=== PATIENT | female | born 1960 | race Caucasian/White ===

== ENCOUNTER 2016-05-09 15:57 | Inpatient (IN) | payer SELFPAY ==
[~2016-05-09] VITALS: Ht 162.6 cm; Wt 54.1 kg
[2016-05-09] VITALS (7 sets, daily range): BP systolic 98–122; BP diastolic 54–78; PULSE 80–103; RESP 20–28; TEMP 99.4; O2SAT 90–97
[~2016-05-09 15:57] MED LIST: BENZ0.5T PO; CITA40 PO; HYDR-3534 PO; RISP4TAB41 PO; TEGR400T PO
[2016-05-09] MEDS ORDERED: methylPREDNISolone SOD SUCC 125 MG/2 ML VIAL IVP ONE (16:15)
[2016-05-09] MEDS ORDERED: ONDANSETRON HCL 4 MG/2 ML VIAL IV PUSH ONE (16:15)
[2016-05-09] MEDS ORDERED: SODIUM CHLORIDE 0.9% FLUSH 5 ML FLUSH IVF PRN (16:15)
[2016-05-09] MEDS ORDERED: MORPHINE SULFATE 8 MG/ML INJ IV PUSH ONE ×2 (16:15→21:00)
--- NOTE | 2016-05-09 16:17 | PD ---
HPI Chief Complaint: Chest Pain Time Seen by Provider: 16:05 Travel History International Travel<30 days: No Contact w/Intl Traveler<30days: No Traveled to known affect area: No History of Present Illness HPI .56-year-old female complaining of chest pain and shortness of breath. She says she is having pain in her chest for 2 days. The pain is aggravated by deep breathing. She is SHORT of breath. She smokes 2 packs of cigarettes a day and believes she has COPD. she says the pain has been fairly constant since it started. There is been no vomiting or diarrhea. The pain is across both sides of the chest and is moderate. She is not aware of fever or chills PFSH Past Medical History Bipolar Disorder: Yes High Cholesterol: Yes Cirrhosis: Yes Diminished Hearing: No Hepatitis: Yes (C) Musculoskeletal: Yes (Chronic back pain/DDD/herniated/bulging discs) Seizures: Yes ?: Not LMP: [place]- Menopausal: Yes Social History Alcohol Use: Yes (States "sometimes") Tobacco Use: Yes (1 PPD) Substance Use: No Allergies-Medications (Allergen,Severity, Reaction): Coded Allergies: Codeine (Verified Allergy, Severe, Rash, vomiting, 05/09/16) Reported Meds & Prescriptions Reported Meds & Active Scripts Active Lortab 7.5 mg/325 mg (Hydrocodone/Acetaminophen 7.5 mg/325 mg) 1 Tab 1 Tab PO Q4H PRN Reported Cogentin (Benztropine Mesylate) 0.5 Mg Tab 0.5 Mg PO DAILY Celexa 40 Mg Tab (Citalopram Hydrobromide) 40 Mg Tab 30 Mg PO DAILY Tegretol-Xr (Carbamazepine) 400 Mg Tab 1,200 Mg PO DAILY Risperdal (Risperidone) 4 Mg Tab 5 Mg PO HS Review of Systems General / Constitutional: No: Fever, Chills Eyes: No: Diploplia, Blurred Vision HENT: No: Headaches Cardiovascular: Positive: Chest Pain or Discomfort Respiratory: Positive: Cough, Shortness of Breath, Wheezing Gastrointestinal: No: Vomiting, Diarrhea Musculoskeletal: No: Myalgias, Arthralgias Skin: No Rash Neurologic: No: Weakness, Dizziness Physical Exam Narrative GENERAL: Well-developed female in moderate respiratory distress SKIN: Warm and dry. HEAD: Atraumatic. Normocephalic. EYES: Pupils equal and round. No scleral icterus. No injection or drainage. ENT: No nasal bleeding or discharge. Mucous membranes pink and moist. NECK: Trachea midline. No JVD. CARDIOVASCULAR: Regular rate and rhythm. No murmur appreciated. RESPIRATORY: She is using accessory muscles. There are bilateral rhonchi GASTROINTESTINAL: Abdomen soft, non-tender, nondistended. Hepatic and splenic margins not palpable. MUSCULOSKELETAL: No obvious deformities. No clubbing. No cyanosis. No edema. NEUROLOGICAL: Awake and alert. No obvious cranial nerve deficits. Motor grossly within normal limits. Normal speech. PSYCHIATRIC: Anxious mood and affect; insight and judgment normal. Data Data Last Documented VS Vital Signs Date Time Temp Pulse Resp B/P Pulse Ox O2 Delivery O2 Flow Rate FiO2 05/09/16 19:11 80 20 113/68 95 Room Air 2 05/09/16 15:59 99.4 Orders Complete Blood Count With Diff (05/09/16 16:11) Comprehensive Metabolic Panel (05/09/16 16:11) B-Type Natriuretic Peptide (05/09/16 16:11) Troponin I (05/09/16 16:11) Influenzae A/B Antigen (05/09/16 16:11) Iv Access Insert/Monitor (05/09/16 16:11) Ecg Monitoring (05/09/16 16:11) Oximetry (05/09/16 16:11) Oxygen Administration (05/09/16 16:11) Sodium Chloride 0.9% Flush (Ns Flush) (05/09/16 16:15) Methylprednisolone So Succ Inj (Solumedr (05/09/16 16:15) Albuterol-Ipratropium Neb (Duoneb Neb) (05/09/16 16:15) Ondansetron Inj (Zofran Inj) (05/09/16 16:15) Morphine Inj (Morphine Inj) (05/09/16 16:15) Chest, Single Ap (05/09/16 17:51) Blood Culture (05/09/16 19:19) Ceftriaxone Inj (Rocephin Inj) (05/09/16 19:30) Azithromycin Inj (Zithromax Inj) (05/09/16 19:30) Labs Laboratory Tests Test 05/09/16 16:30 White Blood Count 14.6 TH/MM3 Red Blood Count 4.39 MIL/MM3 Hemoglobin 14.2 GM/DL Hematocrit 41.8 % Mean Corpuscular Volume 95.4 FL Mean Corpuscular Hemoglobin 32.4 PG Mean Corpuscular Hemoglobin 34.0 % Concent Red Cell Distribution Width 12.3 % Platelet Count 237 TH/MM3 Mean Platelet Volume 8.3 FL Neutrophils (%) (Auto) 84.2 % Lymphocytes (%) (Auto) 9.1 % Monocytes (%) (Auto) 3.4 % Eosinophils (%) (Auto) 0.8 % Basophils (%) (Auto) 2.5 % Neutrophils # (Auto) 12.3 TH/MM3 Lymphocytes # (Auto) 1.3 TH/MM3 Monocytes # (Auto) 0.5 TH/MM3 Eosinophils # (Auto) 0.1 TH/MM3 Basophils # (Auto) 0.4 TH/MM3 CBC Comment DIFF FINAL Differential Comment Sodium Level 136 MEQ/L Potassium Level 4.0 MEQ/L Chloride Level 101 MEQ/L Carbon Dioxide Level 24.7 MEQ/L Anion Gap 10 MEQ/L Blood Urea Nitrogen 14 MG/DL Creatinine 0.66 MG/DL Estimat Glomerular Filtration 93 ML/MIN Rate Random Glucose 94 MG/DL Calcium Level 9.0 MG/DL Total Bilirubin 0.7 MG/DL Aspartate Amino Transf 39 U/L (AST/SGOT) Alanine Aminotransferase 18 U/L (ALT/SGPT) Alkaline Phosphatase 64 U/L Troponin I LESS THAN 0.02 NG/ML B-Type Natriuretic Peptide 15 PG/ML Total Protein 7.6 GM/DL Albumin 3.1 GM/DL MDM Medical Decision Making Medical Screen Exam Complete: Yes Emergency Medical Condition: Yes Medical Record Reviewed: Yes Differential Diagnosis Differential includes coronary artery disease, COPD, pneumonia Narrative Course X-ray shows bibasilar infiltrates. Patient has been given repeated nebulizer treatments and Solu-Medrol with some improvement in the rhonchi and respiratory distress. Blood cultures have been obtained and antibiotics will be initiated. She is having pneumonia with COPD exacerbation Diagnosis Primary Impression: Pneumonia Qualified Code: J18.9 - Pneumonia of both lower lobes due to infectious organism Additional Impression: COPD exacerbation Mauricio Rothman MD May 09, 2016 16:17
[2016-05-09] MEDS: RESP: ALBUTEROL 2.5 MG/IPRATROPIUM 0.5 MG NEB (SCH) INH (16:25)
[2016-05-09 16:42] LABS: AUTOMATED NEUTROPHIL # 12.3 TH/MM3 (1.8-7.7); BASOPHIL # 0.4 TH/MM3 (0-0.2); BASOPHIL % 2.5 % (0.0-2.0); EOSINOPHIL # 0.1 TH/MM3 (0-0.4); EOSINOPHIL % 0.8 % (0.0-4.0); HEMATOCRIT 41.8 % (35.0-46.0); LYMPH % 9.1 % (9.0-44.0); LYMPHOCYTE # 1.3 TH/MM3 (1.0-4.8); MEAN CELL VOLUME 95.4 FL (80.0-100.0); MEAN CORPUSCULAR HEMOGLOBIN 32.4 PG (27.0-34.0); MONO % 3.4 % (0.0-8.0); NEUT % 84.2 % (16.0-70.0); PLATELET COUNT 237 TH/MM3 (150-450); RED BLOOD COUNT 4.39 MIL/MM3 (4.00-5.30); RED CELL DISTRIBUTION WIDTH 12.3 % (11.6-17.2); WHITE BLOOD COUNT 14.6 TH/MM3 (4.0-11.0)
[2016-05-09 16:49] LABS: HEMO FLAGS DIFF FINAL
[2016-05-09 16:51] LABS: CHLORIDE 101 MEQ/L (98-107); SODIUM (NA) 136 MEQ/L (136-145)
[2016-05-09 16:54] LABS: ANION GAP 10 MEQ/L (5-15); BICARBONATE 24.7 MEQ/L (21.0-32.0)
[2016-05-09 16:55] LABS: BLOOD UREA NITROGEN 14 MG/DL (7-18)
[2016-05-09 16:57] LABS: ALT (GPT) 18 U/L (10-53); AST (GOT) 39 U/L (15-37)
[2016-05-09 16:58] LABS: GLOMERULAR FILTRATION RATE 93 ML/MIN (>89)
[2016-05-09 16:59] LABS: TOTAL BILIRUBIN ADULT 0.7 MG/DL (0.2-1.0)
[2016-05-09 17:00] LABS: ALKALINE PHOSPHATASE 64 U/L (45-117)
--- NOTE | 2016-05-09 18:56 | RADHPO ---
EXAM DATE/TIME: 05/09/2016 18:07 [facility] COMPARISON: CHEST SINGLE AP, October 09, 2015, 11:24. INDICATIONS : Chest pain and short of breath. MEDICAL HISTORY : Chronic obstructive pulmonary disease. SURGICAL HISTORY : None. ENCOUNTER: Initial ACUITY: 1 day PAIN SCORE: 5/10 LOCATION: Bilateral chest FINDINGS: There is patchy basilar airspace disease, right greater than left most characteristic of bronchopneum onia or aspiration. No effusion. No pneumothorax. Heart size normal. Mild scoliosis. CONCLUSION: 1. Bilateral mostly basilar airspace disease most characteristic of bronchopneumonia. Lawrence Pham MD on May 09, 2016 at 18:54 Board Certified Radiologist. This report was verified electronically.
[2016-05-09] MEDS ORDERED: cefTRIAXone INJ 1,000 MG in SODIUM CHLORIDE 0.9% INJ 100 ML IV ONE (19:30)
[2016-05-09] MEDS ORDERED: AZITHROMYCIN INJ 500 MG in SODIUM CHLOR 0.9% 250 ML INJ 250 ML IV ONE (19:30)
[2016-05-09] MEDS ORDERED: SODIUM CHLORIDE 0.9% FLUSH 5 ML FLUSH FLUSH PRN (20:30)
[2016-05-09] MEDS ORDERED: NALOXONE HCL 0.4 MG/ML AMP IV PRN (20:30)
[2016-05-09] MEDS ORDERED: RESP: ALBUTEROL 2.5 MG/IPRATROPIUM 0.5 MG NEB (PRN) NEB (20:30)
[2016-05-09] MEDS: SODIUM CHLORIDE 0.9% FLUSH 5 ML FLUSH FLUSH SCH (21:00)
[2016-05-09] MEDS: RESP: ALBUTEROL 2.5 MG/IPRATROPIUM 0.5 MG NEB (SCH) NEB (21:43)
[2016-05-10] VITALS (10 sets, daily range): BP systolic 101–114; BP diastolic 65–73; PULSE 72–81; RESP 16–20; TEMP 97.8–98.9; O2SAT 92–98
[2016-05-10] MEDS: methylPREDNISolone SOD SUCC 40 MG/1 ML VIAL IV PUSH SCH ×3 (01:02→13:10)
[2016-05-10] MEDS: RESP: ALBUTEROL 2.5 MG/IPRATROPIUM 0.5 MG NEB (SCH) NEB ×4 (03:51→20:54)
[2016-05-10 06:58] LABS: AUTOMATED NEUTROPHIL # 6.1 TH/MM3 (1.8-7.7); BASOPHIL % 0.1 % (0.0-2.0); EOSINOPHIL # 0.1 TH/MM3 (0-0.4); HEMATOCRIT 37.5 % (35.0-46.0); HEMO FLAGS DIFF FINAL; LYMPH % 4.3 % (9.0-44.0); LYMPHOCYTE # 0.3 TH/MM3 (1.0-4.8); MEAN CELL VOLUME 96.8 FL (80.0-100.0); MEAN CORPUSCULAR HEMOGLOBIN 32.4 PG (27.0-34.0); MEAN CORPUSCULAR HGB CONC 33.5 % (32.0-36.0); MONO % 1.5 % (0.0-8.0); NEUT % 93.1 % (16.0-70.0); PLATELET COUNT 214 TH/MM3 (150-450); RED BLOOD COUNT 3.88 MIL/MM3 (4.00-5.30); RED CELL DISTRIBUTION WIDTH 12.4 % (11.6-17.2); WHITE BLOOD COUNT 6.6 TH/MM3 (4.0-11.0)
[2016-05-10 07:14] LABS: POTASSIUM 3.7 MEQ/L (3.5-5.1)
[2016-05-10 07:22] LABS: BICARBONATE 25.1 MEQ/L (21.0-32.0)
[2016-05-10] MEDS ORDERED: AZITHROMYCIN 250 MG TAB PO SCH (09:00)
[2016-05-10] MEDS: PANTOPRAZOLE SOD 40 MG DELAYED RELEASE TAB PO SCH (09:51)
[2016-05-10] MEDS: ENOXAPARIN SODIUM 40 MG/0.4 ML SYRINGE SQ SCH (09:53)
[2016-05-10] MEDS ORDERED: ACETAMINOPHEN/HYDROcodone 325 MG/10 MG TAB PO ONE (11:30)
[2016-05-10] MEDS: SODIUM CHLORIDE 0.9% FLUSH 5 ML FLUSH FLUSH SCH ×2 (13:09→21:00)
--- NOTE | 2016-05-10 14:11 | HHI.HP ---
[facility] Service [facility] Primary Care Physician No Primary Care Physician Admission Diagnosis PNEUMONIA, COPD EXACERBATION Diagnoses: (1) Sepsis Diagnosis: Principal (2) Pneumonia Diagnosis: Principal (3) COPD exacerbation Diagnosis: Principal Chief Complaint: SOB Travel History International Travel<30 Days: No Contact w/Intl Traveler <30 Da: No Traveled to Known Affected Are: No History of Present Illness 56-year-old female with history of Hepatitis C and cirrhosis and possible COPD, presents with complaint of shortness of breath and chest pain. Admitted for COPD exacerbation and pneumonia. The patient states she feels a little better than before. She states she could not breathe for a couple of days. She states she may have had chest pain due to hyperventilating. She describes the pain as sharp stating she had a for a couple of days rating it a 10/10 on arrival. She states she felt warm and has had chills off and on. Denies having inhalers at home. She smokes 2 packs per day. Review of Systems Other ROS 10 negative unless otherwise indicated in HPI. Past Family Social History Past Medical History Hepatitis C and cirrhosis Depression Bipolar disorder Schizophrenia Past Surgical History Plate and screws in left arm Reported Medications Active Lortab 7.5 mg/325 mg (Hydrocodone/Acetaminophen 7.5 mg/325 mg) 1 Tab 1 Tab PO Q4H PRN Reported Cogentin (Benztropine Mesylate) 0.5 Mg Tab 0.5 Mg PO DAILY Celexa 40 Mg Tab (Citalopram Hydrobromide) 40 Mg Tab 30 Mg PO DAILY Tegretol-Xr (Carbamazepine) 400 Mg Tab 1,200 Mg PO DAILY Risperdal (Risperidone) 4 Mg Tab 5 Mg PO HS Allergies: Coded Allergies: Codeine (Verified Allergy, Severe, Rash, vomiting, 05/09/16) Family History Sister and father with COPD. Social History Smokes 2 packs per day of cigarettes. Patient drinks a few beers a couple times per week. Physical Exam Vital Signs Vital Signs Date Time Temp Pulse Resp B/P Pulse Ox O2 Delivery O2 Flow Rate FiO2 05/10/16 12:00 98.8 77 16 110/73 93 2/7/17 10:56 92 Nasal Cannula 2.00 05/10/16 08:00 98.9 77 18 109/73 92 05/10/16 04:00 97.8 74 18 110/68 98 05/10/16 01:28 86 20 91 Nasal Cannula 2 05/10/16 00:00 98.1 78 18 114/71 92 05/09/16 22:19 90 20 98/54 96 Room Air 05/09/16 22:00 16 05/09/16 20:21 95 Nasal Cannula 2.00 05/09/16 19:11 80 20 113/68 95 Room Air 2 05/09/16 17:06 103 20 112/73 92 Room Air 05/09/16 16:25 97 Nasal Cannula 2.00 05/09/16 16:23 94 Nasal Cannula 2 05/09/16 16:23 90 Room Air 05/09/16 16:18 87 22 94 Nasal Cannula 2 05/09/16 15:59 99.4 100 28 122/78 92 Physical Exam GENERAL: This is a well-nourished, well-developed patient, in no apparent distress. SKIN: No rashes, ecchymoses or lesions. Cool and dry. HEAD: Atraumatic. Normocephalic. EYES: No scleral icterus. No injection or drainage. NECK: Trachea midline. CHEST: Reproducible chest wall tenderness. CARDIOVASCULAR: Regular rate and rhythm without murmurs. RESPIRATORY: Clear to auscultation. Breath sounds equal bilaterally. No wheezes , rales, or rhonchi. GASTROINTESTINAL: Abdomen nondistended. MUSCULOSKELETAL: No lower extremity edema. NEUROLOGICAL: Awake and alert. Motor grossly within normal limits. Normal speech. PSYCHIATRIC: Normal mood and affect. Insight and judgement normal. Laboratory Laboratory Tests Test 05/09/16 05/10/16 16:30 05:55 White Blood Count 14.6 6.6 Red Blood Count 4.39 3.88 Hemoglobin 14.2 12.6 Hematocrit 41.8 37.5 Mean Corpuscular Volume 95.4 96.8 Mean Corpuscular Hemoglobin 32.4 32.4 Mean Corpuscular Hemoglobin 34.0 33.5 Concent Red Cell Distribution Width 12.3 12.4 Platelet Count 237 214 Mean Platelet Volume 8.3 9.0 Neutrophils (%) (Auto) 84.2 93.1 Lymphocytes (%) (Auto) 9.1 4.3 Monocytes (%) (Auto) 3.4 1.5 Eosinophils (%) (Auto) 0.8 1.0 Basophils (%) (Auto) 2.5 0.1 Neutrophils # (Auto) 12.3 6.1 Lymphocytes # (Auto) 1.3 0.3 Monocytes # (Auto) 0.5 0.1 Eosinophils # (Auto) 0.1 0.1 Basophils # (Auto) 0.4 0.0 CBC Comment DIFF FINAL DIFF FINAL Differential Comment Sodium Level 136 137 Potassium Level 4.0 3.7 Chloride Level 101 102 Carbon Dioxide Level 24.7 25.1 Anion Gap 10 10 Blood Urea Nitrogen 14 13 Creatinine 0.66 0.62 Estimat Glomerular Filtration 93 100 Rate Random Glucose 94 184 Calcium Level 9.0 8.7 Total Bilirubin 0.7 Aspartate Amino Transf 39 (AST/SGOT) Alanine Aminotransferase 18 (ALT/SGPT) Alkaline Phosphatase 64 Troponin I LESS THAN 0.02 B-Type Natriuretic Peptide 15 Total Protein 7.6 Albumin 3.1 Date/Time Procedure Status Source Growth 05/09/16 19:25 Aerobic Blood Culture - Preliminary Resulted Blood Peripheral NO GROWTH IN 1 DAY 05/09/16 19:25 Anaerobic Blood Culture - Preliminary Resulted Blood Peripheral NO GROWTH IN 1 DAY 05/09/16 16:50 Influenza Types A,B Antigen (ZULLY) - Final Complete Nasal Washing NEGATIVE FOR FLU A AND B ANTIGEN.... Result Diagram: 05/10/16 0555 05/10/16 0555 Imaging Last Impressions Chest X-Ray 05/09/16 8321 Signed Impressions: Service Date/Time: Monday, May 09, 2016 18:07 - CONCLUSION: 1. Bilateral mostly basilar airspace disease most characteristic of bronchopneumonia. Lawrence Pham MD Assessment and Plan Assessment and Plan 56-year-old female with: Sepsis: Heart rate 100 with respiratory rate of 28 on arrival. WBC 14.6-->6.6. Source of infection pneumonia. Lactic acid was not performed in ED. -Antibiotics as below -Blood cultures 2 no growth in 1 day -Telemetry, vitals Pneumonia/COPD exacerbation: Chest x-ray personally reviewed with basilar air space disease indicating bronchopneumonia. Influenza negative. Improved with lungs CTAB this afternoon. -Patient currently receiving ceftriaxone and po azithromycin -Solu-Medrol 40 mg every 6 hours IV -Duonebs q6 scheduled and q2 prn -O2 prn -home O2 walk test completed; 91% on exertion without O2. No home O2 needed. Patient complained of some chest pain but appears to be pulmonary related and she also has reproducible tenderness on exam. Troponin less than 0.02. BNP 15. EKG personally interpreted with normal sinus rhythm, no evidence of ischemia. DVT prevention: SCDs, Lovenox. Case management consulted. Blue card to be obtained as well as prescriptions obtained from main hospital. Discharge disposition: Home in stable condition. Diet: Regular Activity: Avoid strenuous activity. Medications: Levaquin, prednisone taper, albuterol inhaler. Continue home medications. Follow-up: PCP within 1 week. Written by Oneida Simon PA-C acting as scribe for Dr. Rowell on 05/10/16 at 1400 hours. The documentation accurately reflects the work and decisions performed face-to- face by me Dr. Rowell on 05/10/16 at 1400 hours. I was later informed by case management that the medications cannot be obtained today but will be able to be obtained tomorrow morning from pharmacy. Patient cannot be discharged as it would be unsafe for her to leave without medications at home. Inpatient antibiotics and steroids switched to by mouth. Physician Certification 2 Midnight Certification Type: Admission for Inpatient Services Order for Inpatient Services The services are ordered in accordance with Medicare regulations or non- Medicare payer requirements, as applicable. In the case of services not specified as inpatient-only, they are appropriately provided as inpatient services in accordance with the 2-midnight benchmark. Estimated LOS (days): 2 days is the estimated time the patient will need to remain in the hospital, assuming treatment plan goals are met and no additional complications. Post-Hospital Plan: Home Problem Qualifiers (1) Pneumonia: Qualified Code: J18.9 - Pneumonia of both lower lobes due to infectious organism Oneida Simon May 10, 2016 14:11
[2016-05-10] MEDS ORDERED: AMOX500C PO (15:33)
[2016-05-10] MEDS ORDERED: ALBU6.7H INH ×2 (16:14→16:26)
[2016-05-10] MEDS ORDERED: PRED10 PO ×2 (16:14→16:26)
--- NOTE | 2016-05-10 16:14 | HHI.DCPOC ---
Discharge Care Plan Diagnosis: (1) Sepsis (2) Pneumonia (3) COPD exacerbation Your Health Problems Are: Shortness of Breath Goals to Promote Your Health * To prevent worsening of your condition and complications * To maintain your health at the optimal level Directions to Meet Your Goals Take your medications as prescribed Follow your dietary instruction Follow activity as directed Keep your appointments as scheduled Take your immunizations and boosters as scheduled If your symptoms worsen call your PCP, if no PCP go to Urgent Care Center or Emergency Room Smoking is Dangerous to Your Health. Avoid second hand smoke Call the 24-hour hour crisis hotline for domestic abuse at Oneida Simon May 10, 2016 16:14
[2016-05-10] MEDS ORDERED: LEVA750T PO (16:26)
--- NOTE | 2016-05-10 17:43 | EKG ---
Date Performed: 05/09/2016 Time Performed: 16:01:12 PTAGE: 56 years EKG: Sinus rhythm rSr'(V1) - probable normal variant Since previous tracing, no significant change noted Normal ECG PREVIOUS TRACING : 10/09/2015 10.25 DOCTOR: Payam Chin Interpretating Date/Time 05/10/2016 17:41:09
[2016-05-10] MEDS ORDERED: cefTRIAXone INJ 1,000 MG in SODIUM CHLORIDE 0.9% INJ 100 ML IV SCH (20:00)
[2016-05-11] VITALS: BP 117/78; PULSE 82; RESP 20; TEMP 97.7; O2SAT 98
[2016-05-11] MEDS: RESP: ALBUTEROL 2.5 MG/IPRATROPIUM 0.5 MG NEB (SCH) NEB ×2 (03:27→09:15)
[2016-05-11 04:00] VITALS: BP 117/81; PULSE 87; RESP 24; TEMP 98.6; O2SAT 98
[2016-05-11 08:00] VITALS: BP 121/79; PULSE 79; RESP 18; TEMP 98; O2SAT 96
[2016-05-11] MEDS: SODIUM CHLORIDE 0.9% FLUSH 5 ML FLUSH FLUSH SCH (09:00)
[2016-05-11] MEDS ORDERED: predniSONE 20 MG TAB PO SCH (09:00)
[2016-05-11 09:16] VITALS: O2SAT 98
[2016-05-11] MEDS: PANTOPRAZOLE SOD 40 MG DELAYED RELEASE TAB PO SCH (09:28)
[2016-05-11] MEDS: ENOXAPARIN SODIUM 40 MG/0.4 ML SYRINGE SQ SCH (09:28)
--- NOTE | 2016-05-11 10:18 | HHI.PR ---
Subjective Remarks Patient seen in follow-up for sepsis secondary to pneumonia. Better today and sepsis is resolved. Awaiting any medications today. Discussed with case management and nursing staff. Patient feels well. No events on telemetry Objective Vitals Vital Signs Date Time Temp Pulse Resp B/P Pulse Ox O2 Delivery O2 Flow Rate FiO2 05/11/16 09:16 98 Nasal Cannula 2.00 05/11/16 08:00 98.0 79 18 121/79 96 05/11/16 04:00 98.6 87 24 117/81 98 05/11/16 00:00 97.7 82 20 117/78 98 05/10/16 21:00 72 05/10/16 20:55 95 Nasal Cannula 2.00 05/10/16 20:00 98.6 74 20 111/72 94 05/10/16 16:00 98.5 81 16 101/65 94 05/10/16 15:22 97 Nasal Cannula 2.00 05/10/16 12:00 98.8 77 16 110/73 93 05/10/16 10:56 92 Nasal Cannula 2.00 I/O 05/10/16 05/10/16 05/10/16 05/11/16 05/11/16 05/11/16 07:00 15:00 23:00 07:00 15:00 23:00 Intake Total 240 ml 1080 ml 120 ml Balance 240 ml 1080 ml 120 ml Intake Oral 240 ml 1080 ml 120 ml # Voids 1 6 2 # Bowel Movements 0 0 0 Result Diagram: 05/10/16 0555 05/10/16 0555 Objective Remarks GENERAL: This is a well-nourished, well-developed patient, in no apparent distress. CARDIOVASCULAR: Regular rate and rhythm without murmurs, gallops, or rubs. RESPIRATORY: Clear to auscultation. Breath sounds equal bilaterally. No wheezes , rales, or rhonchi. GASTROINTESTINAL: Abdomen soft, non-tender, nondistended. Normal active bowel sounds MUSCULOSKELETAL: Extremities without clubbing, cyanosis, or edema. NEURO: Alert & Oriented x4 to person, place, time, situation. Moves all ext x4 A/P Problem List: (1) Sepsis ICD Code: A41.9 Status: Acute Plan: Resolved. Secondary to pneumonia, continue oral antibiotics after discharge Discharge Planning Discharge home Activity unrestricted Diet as tolerated Anya Ramírez MD May 11, 2016 10:18
[2016-05-11] MEDS ORDERED: LEVOFLOXACIN 750 MG TAB PO SCH (11:00)
== END 2016-05-11 11:53 | disposition home or self-care (01) | DRG 871 ==
LOC: PHEFT 15:57 → PHEDA 19:53 → PHEDH 23:53 → PH3B 05-10 01:19
PROVIDERS: ADMIT Hospitalist; ATTEND Hospitalist
DX: A41.9 Sepsis, unspecified organism (principal); J18.0 Bronchopneumonia, unspecified organism; K74.60 Unspecified cirrhosis of liver; J44.0 Chronic obstructive pulmonary disease with (acute) lower respiratory infection; E78.00 Pure hypercholesterolemia, unspecified; F17.210 Nicotine dependence, cigarettes, uncomplicated; F20.9 Schizophrenia, unspecified; F31.9 Bipolar disorder, unspecified
CPT/HCPCS: 71010; 80048; 80053; 83880; 84484; 85025; 87040; 87804; 93005; 94620; 94640; 94664; 96374; 96375; J0456; J0696; J1650; J2270; J2405; J2920; J2930; J7050; J7512

== ENCOUNTER 2016-09-08 14:31 | Emergency (ER) | payer SELFPAY ==
[~2016-09-08] VITALS: Ht 162.6 cm; Wt 59.0 kg
[~2016-09-08 14:31] MED LIST changes: +ALBU6.7H INH; +LEVA750T PO; +PRED10 PO
[2016-09-08 14:34] VITALS: BP 135/75; PULSE 84; RESP 20; TEMP 97.9; O2SAT 96
--- NOTE | 2016-09-08 14:59 | PD ---
HPI Chief Complaint: Injury Time Seen by Provider: 14:45 Travel History International Travel<30 days: No Contact w/Intl Traveler<30days: No Traveled to known affect area: No History of Present Illness HPI 56-year-old female presents for evaluation of right lower leg pain. She reports that she tripped on her flip-flops in June of this year and she reportedly sustained fractures to her right lower leg. She reports that she was seen twice at an outside emergency room about this issue and was placed in a posterior short leg splint. She then unfortunately had to spend 60 days in snf. She was just released a few weeks ago. She reports that because of this she has been unable to see an orthopedist. Her rodent control worker has gotten her an appointment with an orthopedist but it is not until September 19 and so she presents here requesting pain medicine. She was previously been prescribed hydrocodone at an outside emergency room but she has run out. She denies any new injuries but she does admit that she has been walking around without crutches. She has also been manipulating her splint some, changing Lisandro bandages. She has no other complaints. PFSH Past Medical History Arthritis: No Bipolar Disorder: Yes Anxiety: Yes Depression: Yes Cancer: No Cardiovascular Problems: No High Cholesterol: Yes Cirrhosis: Yes COPD: Yes Cerebrovascular Accident: No Diminished Hearing: No Endocrine: No Genitourinary: No Hepatitis: Yes (C) Immune Disorder: No Musculoskeletal: Yes (Chronic back pain/DDD/herniated/bulging discs) Neurologic: Yes Psychiatric: Yes Reproductive: No Respiratory: Yes Migraines: No Seizures: Yes ("LONG AGO" (UNKNOWN ORIGIN)) Sleep Apnea: No Menopausal: Yes Past Surgical History Abdominal Surgery: No AICD: No Arteriovenous Shunt: No Body Medical Devices: LUMBAR LAMI, HARDWARE L. MIDDLE FINGER Cardiac Surgery: No Ear Surgery: No Endocrine Surgery: No Eye Surgery: No Genitourinary Surgery: No Gynecologic Surgery: No Insulin Pump: No Oral Surgery: No Pacemaker: No Thoracic Surgery: No Tonsillectomy: Yes Social History Alcohol Use: Yes (States "sometimes") Tobacco Use: Yes (1 PPD) Substance Use: No Allergies-Medications (Allergen,Severity, Reaction): Coded Allergies: Codeine (Verified Allergy, Severe, Rash, vomiting, 09/08/16) Reported Meds & Prescriptions Reported Meds & Active Scripts Active Diclofenac Sodium DR (Diclofenac Sodium) 75 Mg Tabdr 75 Mg PO BID 10 Days Levaquin (Levofloxacin) 750 Mg Tab 750 Mg PO DAILY Proventil Hfa 6.7 GM Inh (Albuterol Sulfate) 90 Mcg/Act Aer 2 Puff INH Q4-6H PRN Prednisone 10 Mg Tab 10 Mg PO DIRECTED 40 mg daily for 3 days, 30 mg daily for 3 days, 20 mg daily for 3 days, 10 mg for 3 days Lortab 7.5 mg/325 mg (Hydrocodone/Acetaminophen 7.5 mg/325 mg) 1 Tab 1 Tab PO Q4H PRN Reported Cogentin (Benztropine Mesylate) 0.5 Mg Tab 0.5 Mg PO DAILY Celexa 40 Mg Tab (Citalopram Hydrobromide) 40 Mg Tab 30 Mg PO DAILY Tegretol-Xr (Carbamazepine) 400 Mg Tab 1,200 Mg PO DAILY Risperdal (Risperidone) 4 Mg Tab 5 Mg PO HS Review of Systems Except as stated in HPI: all other systems reviewed are Neg Physical Exam Narrative GENERAL: Well-developed well-nourished female in no acute distress SKIN: Warm and dry. HEAD: Atraumatic. Normocephalic. CARDIOVASCULAR: Regular rate and rhythm. No murmur appreciated. RESPIRATORY: No accessory muscle use. Clear to auscultation. Breath sounds equal bilaterally. GASTROINTESTINAL: Abdomen soft, non-tender, nondistended. Hepatic and splenic margins not palpable. MUSCULOSKELETAL: Right lower extremity splint is in place, it appears poorly kept and ill fitting. It was therefore removed. There is no lower extremity edema. No pressure ulcers, no erythema. The compartments of the right lower extremity are soft. She has some tenderness to palpation to the anterior right lower leg. 2+ dorsalis pedis, posterior tibial pulses. NEUROLOGICAL: Awake and alert. No obvious cranial nerve deficits. Motor grossly within normal limits. Normal speech. Data Data Last Documented VS Vital Signs Date Time Temp Pulse Resp B/P Pulse Ox O2 Delivery O2 Flow Rate FiO2 09/08/16 14:34 97.9 84 20 135/75 96 Room Air Orders Tibia/Fibula (Ap/Lat) (09/08/16 ) Ibuprofen (Motrin) (09/08/16 16:15) Tramadol (Ultram) (09/08/16 16:15) MDM Medical Decision Making Medical Screen Exam Complete: Yes Emergency Medical Condition: Yes Medical Record Reviewed: Yes Differential Diagnosis Tibia fracture, fibular fracture, chronic pain, compartment syndrome, DVT, pressure ulcer, splint reapplication Narrative Course 56 year old female who reports that she sustained a fracture to right lower extremity in June of this year, diagnosed at an outside emergency room, presents today requesting pain medicine. She has no point with an orthopedic physician on September 19. She has a poorly fitting splint on the right lower extremity which was removed. No evidence of compartment syndrome, pressure ulcer, DVT. Plan is for x-ray of the tibia-fibula. X-ray imaging reveals FINDINGS: 2 views of the right lower leg show old fractures involving the proximal fibula and distal tibia. Good alignment observed. No acute fracture is observed. Also arthritis involving the ankle joint. Soft tissues are normal. No acute findings. No splint will be reapplied. The patient will be given a copy of her x-ray report and discussed with orthopedic physician. Recommended crutches as needed. She is being discharged with nonnarcotic pain medication. Diagnosis Primary Impression: Fracture of right lower extremity Qualified Code: S82.91XD - Fracture of right lower extremity, closed, with routine healing, subsequent encounter Additional Instructions: Crutches as needed. Diclofenac for pain. Avoid tobacco products. Follow-up with orthopedic physician as scheduled. Return for any emergent medical conditions. Med/Other Pt SpecificInfo: Prescription(s) given Scripts Diclofenac Sodium DR 75 Mg Tabdr75 Mg PO BID 10 Days Ref 0 Prov:Suman Ferreira MD 09/08/16 Disposition: 01 DISCHARGE HOME Condition: Stable John Fong Sep 08, 2016 14:59
[2016-09-08] MEDS ORDERED: IBUPROFEN 400 MG TAB PO ONE (16:15)
[2016-09-08] MEDS ORDERED: traMADol HCL 50 MG TAB PO ONE (16:15)
[2016-09-08] MEDS ORDERED: DICL75TA PO (16:35)
--- NOTE | 2016-09-08 16:35 | RADRPT ---
EXAM DATE/TIME: 09/08/2016 15:22 [facility] COMPARISON: No previous studies available for comparison. INDICATIONS : Right lower leg pain since fractured leg in June. MEDICAL HISTORY : None. SURGICAL HISTORY : None. ENCOUNTER: Initial ACUITY: 3 months PAIN SCORE: 10/10 LOCATION: Right lower leg. FINDINGS: 2 views of the right lower leg show old fractures involving the proximal fibula and distal tibia. Goo d alignment observed. No acute fracture is observed. Also arthritis involving the ankle joint. Soft t issues are normal. CONCLUSION: 1. Old trauma. No acute abnormality. Sergio Sun Jr., MD on September 08, 2016 at 16:31 Board Certified Radiologist. This report was verified electronically.
== END 2016-09-08 16:53 | disposition home or self-care (01) ==
LOC: NEPK 14:31
DX: S82.91XD Unspecified fracture of right lower leg, subsequent encounter for closed fracture with routine healing (principal); M79.661 Pain in right lower leg; W22.8XXD Striking against or struck by other objects, subsequent encounter
CPT/HCPCS: 73590; 99283

== ENCOUNTER 2017-08-25 17:34 | Emergency (ER) | payer OTHER ==
[~2017-08-25] VITALS: Ht 162.6 cm; Wt 52.3 kg
[~2017-08-25 17:34] MED LIST changes: +DICL75TA PO
[2017-08-25 17:40] VITALS: BP 131/82; PULSE 94; RESP 18; TEMP 98.8; O2SAT 95
--- NOTE | 2017-08-25 18:14 | PD ---
HPI Chief Complaint: Skin Problem Time Seen by Provider: 17:48 Travel History International Travel<30 days: No Contact w/Intl Traveler<30days: No Traveled to known affect area: No History of Present Illness HPI Patient is a 57-year-old female presents emergency department for evaluation of rash in her bilateral upper extremities. She became concerned because her sister had diagnosed with MRSA sepsis and had subsequently from it. She states that her sister had MRSA in her blood. The patient states both her and her sister did not have a history of IV drug abuse. Patient fairly disheveled but denies being homeless. She is unsure how long these bites been there but first noticed them a week ago. This been gradually worsening. Her chief concern is on her right index finger there is some swelling as well. No chest pain but the patient does state she has been having a cough as well. She is a smoker. No fevers. Symptoms for at least a week, gradually worsening, mostly in the right finger, bilateral upper extremities as well, gradually worsening peer PFS Past Medical History Arthritis: No Bipolar Disorder: Yes Anxiety: Yes Depression: Yes Cancer: No Cardiovascular Problems: No High Cholesterol: Yes Cirrhosis: Yes COPD: Yes Cerebrovascular Accident: No Diminished Hearing: No Endocrine: No Genitourinary: No Hepatitis: Yes (C) Immune Disorder: No Implanted Vascular Access Dvce: Yes Musculoskeletal: Yes (Chronic back pain/DDD/herniated/bulging discs) Neurologic: Yes Psychiatric: Yes Reproductive: No Respiratory: Yes Migraines: No Seizures: Yes ("LONG AGO" (UNKNOWN ORIGIN)) Sleep Apnea: No Influenza Vaccination: No ?: Not Menopausal: Yes Past Surgical History Abdominal Surgery: No AICD: No Arteriovenous Shunt: No Body Medical Devices: LUMBAR LAMI, HARDWARE L. MIDDLE FINGER Cardiac Surgery: No Ear Surgery: No Endocrine Surgery: No Eye Surgery: No Genitourinary Surgery: No Gynecologic Surgery: No Insulin Pump: No Oral Surgery: No Pacemaker: No Thoracic Surgery: No Tonsillectomy: Yes Social History Alcohol Use: Yes (BEER USUALLY DAILY) Tobacco Use: Yes (1 PPD) Substance Use: No Allergies-Medications (Allergen,Severity, Reaction): Coded Allergies: codeine (Unverified Allergy, Severe, Rash, vomiting, 08/25/17) Reported Meds & Prescriptions Reported Meds & Active Scripts Active Bactrim DS (Sulfamethoxazole-Trimethoprim) 800-160 Mg Tab 1 Tab PO BID Review of Systems Except as stated in HPI: all other systems reviewed are Neg Physical Exam Narrative GENERAL: Well-developed well-nourished disheveled female in no obvious distress SKIN: There are scattered small wounds on her upper extremities on the volar and dorsal aspect. There is also one on the palmar surface of her right index finger with minimal surrounding swelling, this patient states also has been draining and a very small amount of purulent material was expressed from the palmar aspect of her finger. There are no Knavel's signs. HEAD: Atraumatic. Normocephalic. EYES: Pupils equal and round. No scleral icterus. No injection or drainage. ENT: No nasal bleeding or discharge. Mucous membranes pink and moist. NECK: Trachea midline. No JVD. CARDIOVASCULAR: Regular rate and rhythm. No murmur appreciated. RESPIRATORY: No accessory muscle use. Clear to auscultation. Breath sounds equal bilaterally. GASTROINTESTINAL: Abdomen soft, non-tender, nondistended. Hepatic and splenic margins not palpable. MUSCULOSKELETAL: No obvious deformities. No clubbing. No cyanosis. Minimal edema over the distal phalanx of the right index finger as described above. Otherwise extremities are not swollen. She is full nontender range of motion of all joints of the upper extremity except the right index finger which range of motion is minimally limited by swelling. Knavel's signs are negative peer NEUROLOGICAL: Awake and alert. No obvious cranial nerve deficits. Motor grossly within normal limits. Normal speech. PSYCHIATRIC: Appropriate mood and affect; insight and judgment normal. Data Data Last Documented VS Vital Signs Date Time Temp Pulse Resp B/P (MAP) Pulse Ox O2 Delivery O2 Flow Rate FiO2 08/25/17 17:40 98.8 94 18 131/82 (98) 95 Orders Orders Chest, Pa & Lat (08/25/17 ) Rapid Plasmin Reagin Screen (08/25/17 18:31) Penicillin G Benzathine Inj (Bicillin L- (08/25/17 18:45) Ed Discharge Order (08/25/17 18:34) MDM Medical Decision Making Medical Screen Exam Complete: Yes Emergency Medical Condition: Yes Differential Diagnosis Bug bites, syphilis seems unlikely, endocarditis highly unlikely, sepsis is been excluded clinically Narrative Course Patient room to the emergency department, disheveled but appears nontoxic. Has these wounds on her forearms which are unlikely to represent syphilitic rash however an RPR has been sent and the patient was given a first dose of Bicillin here. She does have a phone number on file for us to reach her should her RPR be positive. She will be started on Bactrim. I recommended that she return to the emergency department in 2 days for wound check. Discussed smoking cessation. She is stable for discharge Diagnosis Primary Impression: Cellulitis of right index finger Additional Impression: Rash Additional Instructions: Fill and take your antibiotics, they are free at [facility]. Come back to the ER in 2 days for a recheck of your finger. Med/Other Pt SpecificInfo: Prescription(s) given Scripts Sulfamethoxazole-Trimethoprim (Bactrim DS) 800-160 Mg Tab 1 TAB PO BID for Infection, #14 TAB 0 Refills Prov: Salvador Ruvalcaba MD 08/25/17 Disposition: 01 DISCHARGE HOME Condition: Stable Salvador Ruvalcaba MD August 25, 2017 18:14
[2017-08-25] MEDS ORDERED: BACT800T5 PO (18:33)
[2017-08-25] MEDS ORDERED: PENICILLIN G BENZATHINE 1,200,000 UNITS/2 ML SYRINGE IM ONE (18:45)
--- NOTE | 2017-08-25 18:52 | RADRPT ---
EXAM DATE: 08/25/2017 6:24 PM EDT AGE/SEX: 57 years / Female INDICATIONS: Chest pain for 1 week CLINICAL DATA: This is the patient's initial encounter. Patient reports that signs and symptoms have been present for 1 week and indicates a pain score of 5/10. MEDICAL/SURGICAL HISTORY: Chronic obstructive pulmonary disease. None. COMPARISON: No prior [facility] exams available for comparison. FINDINGS: PA and lateral views of the chest demonstrate the lungs to be symmetrically aerated without evidence of mass, infiltrate or effusion. No evidence of pneumothorax. The cardiomediastinal contours are unre markable. Mild S-shaped scoliosis.. CONCLUSION: The lungs are clear. Electronically signed by: Sergio Dill MD 08/25/2017 6:51 PM EDT
[2017-08-25 19:12] VITALS: BP 132/80; PULSE 90; RESP 18; O2SAT 97
== END 2017-08-25 19:50 | disposition home or self-care (01) ==
LOC: PHED 17:34
DX: L03.011 Cellulitis of right finger (principal); R21 Rash and other nonspecific skin eruption; E78.00 Pure hypercholesterolemia, unspecified; F31.9 Bipolar disorder, unspecified; F41.9 Anxiety disorder, unspecified; J44.9 Chronic obstructive pulmonary disease, unspecified; G89.29 Other chronic pain; M54.9 Dorsalgia, unspecified; F17.200 Nicotine dependence, unspecified, uncomplicated
CPT/HCPCS: 71046; 86592; 96372; 99284; J0561

== ENCOUNTER 2017-09-02 14:38 | Emergency (ER) | payer OTHER ==
[~2017-09-02 14:38] MED LIST changes: -ALBU6.7H INH; +BACT800T5 PO; -BENZ0.5T PO; -CITA40 PO; -DICL75TA PO; -HYDR-3534 PO; -LEVA750T PO; -PRED10 PO; -RISP4TAB41 PO; -TEGR400T PO
[2017-09-02 14:43] VITALS: BP 136/75; PULSE 88; RESP 20; TEMP 98.4; O2SAT 95
[2017-09-02] MEDS ORDERED: BACT800T5 PO (14:59)
[2017-09-02] MEDS ORDERED: CEPH-460 PO (14:59)
--- NOTE | 2017-09-02 15:04 | PD ---
HPI Chief Complaint: Skin Problem Time Seen by Provider: 14:49 Travel History International Travel<30 days: No Contact w/Intl Traveler<30days: No Traveled to known affect area: No History of Present Illness HPI 57-year-old female presents emergency department evaluation of a possible right index finger infection. Says that she came to the emergency department August 25 for evaluation, was given an antibiotic, and had a blood test. She would like to know the results of the blood test. Says that the area of infection has improved however, it is still swollen and open. She denies significant pain to the area. Denies fevers or chills. PFSH Past Medical History Arthritis: No Bipolar Disorder: Yes Anxiety: Yes Depression: Yes Cancer: No Cardiovascular Problems: No High Cholesterol: Yes Cirrhosis: Yes COPD: Yes Cerebrovascular Accident: No Diminished Hearing: No Endocrine: No Genitourinary: No Hepatitis: Yes (C) Immune Disorder: No Implanted Vascular Access Dvce: Yes Musculoskeletal: Yes (Chronic back pain/DDD/herniated/bulging discs) Neurologic: Yes Psychiatric: Yes Reproductive: No Respiratory: Yes Migraines: No Seizures: Yes ("LONG AGO" (UNKNOWN ORIGIN)) Sleep Apnea: No Influenza Vaccination: Yes ?: Not Menopausal: Yes Past Surgical History Surgical History: No Previous Surgery Abdominal Surgery: No AICD: No Arteriovenous Shunt: No Body Medical Devices: LUMBAR LAMI, HARDWARE L. MIDDLE FINGER Cardiac Surgery: No Ear Surgery: No Endocrine Surgery: No Eye Surgery: No Genitourinary Surgery: No Gynecologic Surgery: No Insulin Pump: No Oral Surgery: No Pacemaker: No Thoracic Surgery: No Tonsillectomy: Yes Social History Alcohol Use: Yes (BEER USUALLY DAILY) Tobacco Use: Yes (1 PPD) Substance Use: No Allergies-Medications (Allergen,Severity, Reaction): Coded Allergies: codeine (Unverified Allergy, Severe, Rash, vomiting, 09/02/17) Reported Meds & Prescriptions Reported Meds & Active Scripts Active Keflex (Cephalexin) 500 Mg Cap 500 Mg PO Q8H 10 Days Bactrim DS (Sulfamethoxazole-Trimethoprim) 800-160 Mg Tab 1 Tab PO BID Review of Systems Except as stated in HPI: all other systems reviewed are Neg Physical Exam Narrative GENERAL: Well-nourished, well-developed patient, in NAD SKIN: Focused skin assessment warm/dry. No rashes or lesions. right hand-significant callusing of the hands and fingers. The right index finger has an area of open callus skin with white discharge. The skin under the callus appears to be granulating well and is nonfriable. I do not appreciate the rash that was seen at the initial evaluation. I see healed papules along the arms. HEAD: Normocephalic. Atraumatic. EYES: No scleral icterus. No injection or drainage. THROAT: No pharyngeal injection, exudates, or tonsillar hypertrophy. Airway is patent. NECK: Supple, trachea midline. No JVD or lymphadenopathy. No meningismus. CARDIOVASCULAR: Regular rate and rhythm without murmurs, gallops, or rubs. RESPIRATORY: Breath sounds equal bilaterally. No accessory muscle use. No wheezes, rales, or rhonchi MUSCULOSKELETAL: No cyanosis, or edema. BACK: Nontender without obvious deformity. No CVA tenderness. Data Data Last Documented VS Vital Signs Date Time Temp Pulse Resp B/P (MAP) Pulse Ox O2 Delivery O2 Flow Rate FiO2 09/02/17 14:43 98.4 88 20 136/75 (95) 95 Orders Orders Ed Discharge Order (09/02/17 15:04) [facility] Medical Decision Making Medical Screen Exam Complete: Yes Emergency Medical Condition: Yes Differential Diagnosis Right index finger cellulitis, erysipelas, abscess Narrative Course 57-year-old female presents emergency department for evaluation the infection to her right finger that has been persistent for 2 weeks. She was evaluated previously and given Bactrim. She states compliance with the antibiotics and she completed her last dose today. She says that she has been soaking the area which has seemed to reduce some of the swelling but swelling still persists. I suspect that she has been non complaint with her hand hygiene. Her hands are rather dirty and it appears that there is some clear discharge from the finger. No evidence of fluctuance or significant induration. 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 As of now, I believe that if she continues a course of Bactrim and as Keflex that she will not have any issues regarding healing of her finger. If she does not keep her hands clean and does not take the medication I believe that she will return for worsening infection. I gave her the results of the RPR which was negative. I strongly advised that she take her medication as prescribed and have good hand hygiene. Advised that she should use soap and water to clean her finger and hands instead of Epson salt soaks. Diagnosis Primary Impression: Cellulitis Qualified Codes: L03.011 - Cellulitis of right finger Referrals: [facility] Additional Instructions: As discussed, wash her hands in warm soapy water daily. Ensure good hand hygiene to reduce the possibility of spread of your infection. If the symptoms worsen or persist return to the emergency department. Follow-up with [facility] or [facility] for your care. You should return in 2-3 days for wound check. Scripts Cephalexin (Keflex) 500 Mg Cap 500 MG PO Q8H for Infection for 10 Days, #30 CAP 0 Refills Prov: Lino Greco MD 09/02/17 Sulfamethoxazole-Trimethoprim (Bactrim DS) 800-160 Mg Tab 1 TAB PO BID for Infection, #20 TAB 0 Refills Prov: Lino Greco MD 09/02/17 Disposition: 01 DISCHARGE HOME Condition: Stable Khushbu Donato Sep 02, 2017 15:04
== END 2017-09-02 15:21 | disposition home or self-care (01) ==
LOC: PHEFT 14:38
DX: L03.011 Cellulitis of right finger (principal); F31.9 Bipolar disorder, unspecified; F41.9 Anxiety disorder, unspecified; E78.00 Pure hypercholesterolemia, unspecified; J44.9 Chronic obstructive pulmonary disease, unspecified; K74.60 Unspecified cirrhosis of liver; G89.29 Other chronic pain; M54.9 Dorsalgia, unspecified; F17.200 Nicotine dependence, unspecified, uncomplicated
CPT/HCPCS: 99283